=== PATIENT | male | born 1990 | race Caucasian/White ===

== ENCOUNTER 2022-03-12 11:47 | Emergency (ER) | payer OTHER ==
[~2022-03-12] VITALS: Ht 180.3 cm; Wt 70.3 kg
[2022-03-12 11:56] VITALS: BP 123/84
[2022-03-12] MEDS ORDERED: CLIN300C12 PO (12:24)
== END 2022-03-12 12:35 | disposition home or self-care (01) ==
LOC: ER 11:55
DX: L03.317 Cellulitis of buttock (principal); L73.1 Pseudofolliculitis barbae; T69.022A Immersion foot, left foot, initial encounter; T69.021A Immersion foot, right foot, initial encounter; Z60.2 Problems related to living alone; Z79.899 Other long term (current) drug therapy